=== PATIENT | male | born 1975 | race Hispanic/Latino ===

== ENCOUNTER 2019-05-14 23:12 | Emergency (ER) | payer OTHER, SELFPAY ==
[2019-05-14] MEDS ORDERED: NS 1,000 ML IV ONE (23:45)
[2019-05-15 00:31] LABS: BASO # 0.1 10^3/uL (0.0-0.2); BASO % 0.4 % (0.0-1.0); EOS # 0.2 10^3/uL (0.0-0.5); EOS % 1.1 % (0.0-3.0); HEMATOCRIT 46.5 % (42.0-52.0); HEMOGLOBIN 15.1 g/dl (13.5-17.5); LYMPH % 11.6 % (24.0-44.0); MEAN CORPUSCULAR HEMOGLOBIN 27.8 pg (27.0-33.0); MEAN CORPUSCULAR HGB CONC 32.5 g/dl (32.0-36.5); MEAN CORPUSCULAR VOLUME 85.6 fl (80.0-96.0); MONO # 1.1 10^3/uL (0.0-0.8); MONO % 6.2 % (0.0-5.0); NEUTROPHILS # 13.5 10^3/uL (1.5-8.5); PLATELET COUNT, AUTOMATED 350 10^3/uL (150-450); RED BLOOD COUNT 5.43 10^6/uL (4.30-6.10); WHITE BLOOD COUNT 16.9 10^3/uL (4.0-10.0)
[2019-05-15 01:12] LABS: ACETAMINOPHEN LEVEL < 2.0 UG/ML (10.0-30.0); ALBUMIN 3.9 GM/DL (3.2-5.2); ALT/SGPT 29 U/L (12-78); BILIRUBIN,DIRECT < 0.1 MG/DL (0.0-0.2); BILIRUBIN,TOTAL 0.3 MG/DL (0.2-1.0); BLOOD UREA NITROGEN 15 MG/DL (7-18); CALCIUM LEVEL 8.5 MG/DL (8.5-10.1); CARBON DIOXIDE LEVEL 25 MEQ/L (21-32); CHLORIDE LEVEL 107 MEQ/L (98-107); CPK CREATINE PHOSPHOKINASE 152 U/L (39-308); CREATININE FOR GFR 1.15 MG/DL (0.70-1.30); ETHYL ALCOHOL (ETHANOL) < 0.003 % (0.000-0.010); GLOMERULAR FILTRATION RATE > 60.0 (>60); GLUCOSE, FASTING 105 MG/DL (70-100); POTASSIUM SERUM 4.3 MEQ/L (3.5-5.1); SALICYLATE LEVEL < 1.7 MG/DL (5.0-30.0); SODIUM LEVEL 142 MEQ/L (136-145); THYROID STIMULATING HORMONE 0.659 uIU/ML (0.358-3.740)
[2019-05-15] MEDS ORDERED: KETOROLAC 30 MG/ML VIAL (J1885) IV ONE (01:45)
[2019-05-15 02:24] LABS: AMPHETAMINES LEVEL URINE NEGATIVE (NEGATIVE); BARBITURATES URINE NEGATIVE (NEGATIVE); BENZODIAZEPINES URINE NEGATIVE (NEGATIVE); CANNABINOIDS URINE NEGATIVE (NEGATIVE); COCAINE METABOLITE URINE NEGATIVE (NEGATIVE); METHADONE URINE NEGATIVE (NEGATIVE); OPIATES URINE NEGATIVE (NEGATIVE); PHENCYCLIDINE URINE NEGATIVE (NEGATIVE)
[2019-05-15 03:59] VITALS: BP 131/87
--- NOTE | 2019-05-15 07:55 | REP ---
KUB: Two views. History: Drug overdose. Findings: The bowel gas pattern is unremarkable. There are a few small bowel air filled loops but these are not dilated. Air and stool seen in a nondistended colon. Psoas margins and flank stripes are intact. No mass organomegaly is seen. Impression: Negative KUB. No opaque foreign body seen. Electronically Signed by Marco Contreras MD 05/15/2019 07:47 A
--- NOTE | 2019-05-16 08:40 | ECGEPIP ---
[facility] - ED Test Date: 2019-05-15 Pat Name: JASKARAN OWUSU Department: Room: - Gender: Male [employer] Officer: : 1975 Requested By: DERRELL Prescott Order Number: [id number] Reading MD: Ricarda Gu Measurements Intervals [place] Rate: 85 P: 60 SD: 153 QRS: 51 QRSD: 84 T: 21 QT: 338 QTc: 402 Interpretive Statements SINUS RHYTHM NO PRIOR Electronically Signed on 05-16-2019 8:40:25 EDT by Ricarda Gu
== END 2019-05-15 04:01 | disposition home or self-care (01) ==
LOC: M ED 23:12
DX: F19.10 Other psychoactive substance abuse, uncomplicated (principal); F12.10 Cannabis abuse, uncomplicated; F17.200 Nicotine dependence, unspecified, uncomplicated
CPT/HCPCS: 74018; 80048; 80076; 80307; 82550; 84443; 85025; 93005; 93041; 94760; 96361; 96374; 99285; G0480; J1885